=== PATIENT | male | born 1970 | race Caucasian/White ===

== ENCOUNTER → 2020-01-21 13:34 | Outpatient (CLI) | payer OTHER, SELFPAY ==
--- NOTE | ~2020-01-21 | XR_ITS ---
EXAMINATION: XR chest 2V DATE: 01/21/2020 13:46 INDICATION: Pneumonia, unspecified organism TECHNIQUE: Frontal and lateral views of the chest are obtained COMPARISON: None available FINDINGS: There are minimal airspace opacities of the lower lobes. There is no pleural effusion or pn eumothorax. The cardiomediastinal silhouette is normal. There is mild thoracic spondylosis. IMPRESSION: 1. Minimal airspace opacities of the lower lobes, likely pneumonia. Reviewed, dictated and finalized at location B.
== END ==
PROVIDERS: Visit Provider Nurse Practitioner Family
DX: J18.9 Pneumonia, unspecified organism (principal); R91.8 Other nonspecific abnormal finding of lung field
CPT/HCPCS: 71046

== ENCOUNTER 2020-02-13 09:06 | Outpatient (CLI) | payer OTHER, SELFPAY ==
--- NOTE | 2020-02-13 09:26 | ECG_ITS ---
Measurements Intervals [place] Rate: 92 P: 28 NV: 100 QRS: 0 QRSD: 89 T: 17 QT: 338 QTc: 419 Interpretive Statements SINUS RHYTHM WITH SHORT NV INTERVAL NONSPECIFIC ST & T-WAVE ABNORMALITY- INFERIOR LEADS BASELINE ARTIFACT- I, V1-V3 BORDERLINE ECG Electronically Signed On 02-13-2020 10:02:20 CDT by Giovanni Foreman D.O.
== END 2020-02-13 09:07 | disposition home or self-care (01) ==
PROVIDERS: PCP Family Medicine; Visit Provider Nurse Practitioner Family
DX: R07.9 Chest pain, unspecified (principal); R94.31 Abnormal electrocardiogram [ECG] [EKG]
CPT/HCPCS: 93005

== ENCOUNTER 2020-02-25 08:30 | Outpatient (CLI) | payer OTHER, SELFPAY ==
--- NOTE | ~2020-02-25 | XR_ITS ---
XR chest 2V 02/25/2020 08:45 Indication: Pneumonia Procedure: PA and lateral views of the chest Comparison: 01/21/2020 Findings: Cardiomegaly. Persistent bibasilar airspace disease. There is small bilateral pleural effus ions versus pleural thickening. No edema or pneumothorax. Impression: 1: Persistent bibasilar airspace disease which may represent atelectasis, scarring and/or pneumonia. 2: Small pleural effusions versus pleural thickening. Reviewed, dictated and finalized at location A. Impression: 1: Persistent bibasilar airspace disease which may represent atelectasis, scarr ing and/or pneumonia. 2: Small pleural effusions versus pleural thickening.
== END 2020-02-25 08:31 | disposition home or self-care (01) ==
LOC: ANHIMG 08:33
PROVIDERS: PCP Family Medicine; Visit Provider Nurse Practitioner Family
DX: J18.9 Pneumonia, unspecified organism (principal); R91.8 Other nonspecific abnormal finding of lung field
CPT/HCPCS: 71046

== ENCOUNTER 2020-03-04 07:28 | Outpatient (CLI) | payer OTHER, SELFPAY ==
--- NOTE | 2020-03-04 07:48 | ECHO_ITS ---
Patient Info Name: Rl Valdez Age: 49 years : 1970 Gender: Male Ht: 76 in Wt: 210 lbs BSA: 2.27 m2 HR: 85 bpm BP: 151 / 99 mmHg Heart Rhythm: Sinus Rhythm Technical Quality: Good Exam Date: 03/04/2020 7:57 AM Exam Location: [facility] Patient Status: Outpatient Admit Date: 03/04/2020 Staff Ordering Physician: Earl Daily NP Crown Ceramist: Yolie Montoya RDCS Attending Provider: Earl Daily NP Referring Physician: Killian STRICKLAND; Exam Type: CA echo doppler color flow Study Info Indications I51.7 - Cardiomegaly Complete two-dimensional, color flow and Doppler transthoracic echocardiogram is performed. Summary 1. Left ventricular chamber dimension is normal. 2. Left ventricular systolic function is normal, estimated at 55-60%. 3. The left ventricular diastolic function is grade I diastolic dysfunction. 4. E/e' 6 is not elevated. 5. Left atrial chamber dimension is mildly enlarged. 6. Right atrial chamber dimension is mildly enlarged. 7. There is mild mitral valve regurgitation. 8. There is mild tricuspid valve regurgitation. 9. No pulmonary hypertension, estimated pulmonary arterial systolic pressure is 26 mmHg. 10. There is trace pulmonic regurgitation. 11. The aortic root size at the sinus of Valsalva is mildly dilated at 4.1 cm. 12. There is trivial pericardial effusion. Left Ventricle E/e' 6 is not elevated. Left ventricular chamber dimension is normal. Left ventricular systolic function is normal, estimated at 55-60%. The left ventricular diastolic function is grade I diastolic dysfunction. Right Ventricle Right ventricular chamber dimension is normal. Right ventricular systolic function is normal. Left Atria Left atrial chamber dimension is mildly enlarged. Right Atria Right atrial chamber dimension is mildly enlarged. Aortic Valve The aortic valve is trileaflet. There is no aortic valve stenosis. There is no aortic valve regurgitation. Pulmonic Valve There is trace pulmonic regurgitation. Mitral Valve There is no mitral valve stenosis. There is mild mitral valve regurgitation. Tricuspid Valve There is mild tricuspid valve regurgitation. No pulmonary hypertension, estimated pulmonary arterial systolic pressure is 26 mmHg. Pericardium/Pleural There is trivial pericardial effusion. Inferior Vena Cava Normal inferior vena cava with >50% collapse upon inspiration consistent with normal right atrial pressure, 5 mmHg. Aorta The aortic root size at the sinus of Valsalva is mildly dilated at 4.1 cm. Left Ventricular Outflow Tract Name Value Normal LVOT 2D LVOT Diameter 2.4 cm LVOT Doppler LVOT Peak Gradient 4 mmHg LVOT Mean Gradient 1 mmHg LVOT VTI 23 cm LVOT VTI/AV VTI Ratio 0.9 LVOT Stroke Volume 103 ml LVOT CO 14.5 l/min LVOT CI 6.4 l/min/m2 Pulmonic Valve
== END 2020-03-04 07:29 | disposition home or self-care (01) ==
PROVIDERS: PCP Family Medicine; Visit Provider Nurse Practitioner Family
DX: I51.7 Cardiomegaly (principal); I34.0 Nonrheumatic mitral (valve) insufficiency; I36.1 Nonrheumatic tricuspid (valve) insufficiency
CPT/HCPCS: 93306

== ENCOUNTER 2020-03-20 08:43 | Outpatient (CLI) | payer OTHER, SELFPAY ==
--- NOTE | ~2020-03-20 | CT_ITS ---
EXAMINATION: CTA chest DATE: 03/20/2020 09:43 INDICATION: Thoracic aortic ectasia TECHNIQUE: Computed tomographic angiography (CTA) of the chest was performed with 100 mL Omnipque-350 intravenous contrast. Maximum intensity projection 3D-reconstructions of the aorta and other arterie s were constructed by the technologist on a separate workstation. The dose-length product (DLP) was 6 23.06 mGy-cm. Automated exposure control and iterative reconstruction technique were employed. COMPARISON: None. FINDINGS: There is fusiform dilation of the ascending aorta which measures 4.1 x 3.9 cm at the level of the main pulmonary artery. No dissection is identified. Dependent atelectasis is noted in the lowe r lobes. A few scattered pulmonary nodules are seen which measure 2 to 3 mm, most consistent with old granulomatous disease. There is no pleural effusion or pneumothorax. No pathologically enlarged thor acic lymph nodes are identified. The heart size is normal. A trace pericardial effusion is noted. The re is mild thoracic spondylosis. IMPRESSION: 1. Fusiform dilation of the ascending aorta without dissection. Reviewed, dictated and finalized at location A.
[2020-03-20 09:35] LABS: Estimated Glomerular Filt Rate > 60
== END 2020-03-20 08:44 | disposition home or self-care (01) ==
PROVIDERS: PCP Family Medicine; Visit Provider Internal Medicine Cardiovascular Disease
DX: I77.810 Thoracic aortic ectasia (principal)
CPT/HCPCS: 36415; 71275; Q9967

== ENCOUNTER 2020-03-25 12:19 | Outpatient (CLI) | payer OTHER, SELFPAY ==
--- NOTE | ~2020-03-25 | XR_ITS ---
EXAMINATION: XR chest 2V 03/25/2020 12:32 INDICATION: Pneumonia PROCEDURE: 2 view chest COMPARISON: 02/25/2020 FINDINGS: The lungs are clear. The cardiomediastinal silhouette is within normal limits. There are no pleural effusions. There is no pneumothorax suspected. IMPRESSION: 1: NO ACUTE CARDIOPULMONARY DISEASE. Reviewed, dictated and finalized at location A.
== END 2020-03-25 12:20 | disposition home or self-care (01) ==
PROVIDERS: PCP Family Medicine; Visit Provider Nurse Practitioner Family
DX: J18.9 Pneumonia, unspecified organism (principal)
CPT/HCPCS: 71046

== ENCOUNTER 2020-10-02 15:08 | Outpatient (CLI) | payer OTHER, SELFPAY ==
--- NOTE | 2020-10-02 15:41 | ECG_ITS ---
Measurements Intervals [place] Rate: 95 P: 57 AL: 150 QRS: -47 QRSD: 93 T: 34 QT: 345 QTc: 434 Interpretive Statements SINUS RHYTHM LEFT ANTERIOR FASCICULAR BLOCK BASELINE WANDER- III, V1-V3 ABNORMAL ECG Electronically Signed On 10-02-2020 15:54:07 ENVIRONMENTAL FIELD OFFICE MANAGER by Giovanni Foreman D.O.
== END 2020-10-02 15:09 | disposition home or self-care (01) ==
LOC: ANHCARD 15:10
PROVIDERS: PCP Family Medicine; Visit Provider Nurse Practitioner Family
DX: Z01.810 Encounter for preprocedural cardiovascular examination (principal); I44.4 Left anterior fascicular block
CPT/HCPCS: 93005

== ENCOUNTER 2020-11-05 08:24 | Outpatient (CLI) | payer OTHER, SELFPAY ==
--- NOTE | 2020-11-05 09:08 | ECHO_ITS ---
Patient Info Name: Rl Valdez Age: 49 years : 1970 Gender: Male Ht: 76 in Wt: 230 lbs BSA: 2.38 m2 HR: 77 bpm BP: 144 / 98 mmHg Technical Quality: Good Exam Date: 11/05/2020 9:30 AM Exam Location: [facility] Patient Status: Outpatient Admit Date: 11/05/2020 Staff Ordering Physician: Tamica Peter Bottle Booth Attendant: Van Vega RDCS, RT Attending Provider: Tamica Peter Referring Physician: Brittani MCRAE; Exam Type: CA echo doppler color flow Study Info Indications R94.31 - Abnormal electrocardiogram ECG EKG Complete two-dimensional, color flow and Doppler transthoracic echocardiogram is performed. Strain analysis performed. Summary 1. Complete two-dimensional, color flow and Doppler transthoracic echocardiogram is performed. 2. Left ventricular chamber dimension is normal. 3. Left ventricular systolic function is normal, estimated at 60-65%. 4. The left ventricular diastolic function is grade I diastolic dysfunction. 5. E/e' 4 is not elevated. 6. Global longitudinal strain is mildly abnormal at -16.2%. 7. There is trace mitral valve regurgitation. 8. There is mild tricuspid valve regurgitation. 9. No pulmonary hypertension, estimated pulmonary arterial systolic pressure is 28 mmHg. Left Ventricle E/e' 4 is not elevated. Global longitudinal strain is mildly abnormal at -16.2%. Left ventricular chamber dimension is normal. Left ventricular systolic function is normal, estimated at 60-65%. The left ventricular diastolic function is grade I diastolic dysfunction. Right Ventricle Right ventricular chamber dimension is normal. Right ventricular systolic function is normal. Left Atria Left atrial chamber dimension is normal. Right Atria Right atrial chamber dimension is normal. Aortic Valve The aortic valve is trileaflet. There is no aortic valve stenosis. There is no aortic valve regurgitation. Pulmonic Valve There is no pulmonic regurgitation. Mitral Valve There is no mitral valve stenosis. There is trace mitral valve regurgitation. Tricuspid Valve There is mild tricuspid valve regurgitation. No pulmonary hypertension, estimated pulmonary arterial systolic pressure is 28 mmHg. Pericardium/Pleural There is no pericardial effusion. Inferior Vena Cava Normal inferior vena cava with >50% collapse upon inspiration consistent with normal right atrial pressure, 5 mmHg. Aorta The aortic root size at the sinus of Valsalva is normal. Left Ventricular Outflow Tract Name Value Normal LVOT 2D LVOT Diameter 2.3 cm LVOT Doppler LVOT Peak Gradient 4 mmHg LVOT Mean Gradient 2 mmHg LVOT VTI 19 cm LVOT VTI/AV VTI Ratio 0.8 LVOT Stroke Volume 81 ml LVOT CO 6.3 l/min LVOT CI 2.6 l/min/m2 Mitral Valve Name Value Normal
== END 2020-11-05 08:25 | disposition home or self-care (01) ==
PROVIDERS: PCP Family Medicine; Visit Provider Nurse Practitioner Family
DX: R94.31 Abnormal electrocardiogram [ECG] [EKG] (principal)
CPT/HCPCS: 93306

== ENCOUNTER 2020-11-13 09:27 | Outpatient (CLI) | payer OTHER, SELFPAY ==
--- NOTE | 2020-11-13 09:33 | EST_ITS ---
Patient Info Name: Rl Valdez Age: 49 years : 1970 Gender: Male Exam Date: 11/13/2020 10:06 AM Exam Location: [facility] Patient Status: Outpatient Admit Date: 11/13/2020 Staff Ordering Physician: Tamica Peter Attending Provider: Tamica Peter Exercise Technologist: Elise Naidu RDCS Exercise Physician: Giovanni Foreman DO Exam Type: CA stress test treadmill Study Info Indications R94.31 - Abnormal electrocardiogram ECG EKG A treadmill exercise stress test was performed. Summary 1. 1. Negative Sathish exercise stress test for ischemic ST changes by ECG criteria. 2. 2. Good functional capacity, achieving 12 METs of workload. 3. 3. Appropriate HR response to exercise. 4. 4. Appropriate HR recovery at 1 minute post exercise. 5. 5. Normal baseline blood pressure with hypertensive response to exercise. 6. 6. No imaging with stress testing. 7. 7. Patient informed of the above results. Protocol: Sathish Stress ECG Details Stage: REST Duration (min): 6 min : 2 sec Speed (mph): 0.0 Grade (%): 0 HR (bpm): 78 SBP (mmHg): 125 DBP (mmHg): 87 METS: --- Stage: REST Duration (min): 10 min : 40 sec Speed (mph): 0.0 Grade (%): 0 HR (bpm): 81 SBP (mmHg): 125 DBP (mmHg): 87 METS: --- Stage: STAGE 1 Duration (min): 1 min : 0 sec Speed (mph): 1.7 Grade (%): 10 HR (bpm): 107 SBP (mmHg): 125 DBP (mmHg): 87 METS: --- Stage: STAGE 1 Duration (min): 2 min : 0 sec Speed (mph): 1.7 Grade (%): 10 HR (bpm): 106 SBP (mmHg): 125 DBP (mmHg): 87 METS: --- Stage: STAGE 1 Duration (min): 3 min : 0 sec Speed (mph): 1.7 Grade (%): 10 HR (bpm): 105 SBP (mmHg): 151 DBP (mmHg): 74 METS: --- Stage: STAGE 2 Duration (min): 1 min : 0 sec Speed (mph): 2.5 Grade (%): 12 HR (bpm): 113 SBP (mmHg): 151 DBP (mmHg): 74 METS: --- Stage: STAGE 2 Duration (min): 2 min : 0 sec Speed (mph): 2.5 Grade (%): 12 HR (bpm): 120 SBP (mmHg): 147 DBP (mmHg): 79 METS: --- Stage: STAGE 2 Duration (min): 3 min : 0 sec Speed (mph): 2.5 Grade (%): 12 HR (bpm): 122 SBP (mmHg): 147 DBP (mmHg): 79 METS: --- Stage: STAGE 3 Duration (min): 1 min : 0 sec Speed (mph): 3.4 Grade (%): 14 HR (bpm): 131 SBP (mmHg): 149 DBP (mmHg): 79 METS: --- Stage: STAGE 3 Duration (min): 2 min : 0 sec Speed (mph): 3.4 Grade (%): 14 HR (bpm): 139 SBP (mmHg): 149 DBP (mmHg): 79 METS: --- Stage: STAGE 3 Duration (min): 3 min : 0 sec Speed (mph): 3.4 Grade (%): 14 HR (bpm): 146 SBP (mmHg): 168 DBP (mmHg): 104 METS: --- Stage: STAGE 4 Duration (min): 1 min : 0 sec Speed (mph): 4.2 Grade (%): 16 HR (bpm): 158 SBP (mmHg): 198 DBP (mmHg): 104 METS: --- Stage: STAGE 4 Durati
== END 2020-11-13 09:28 | disposition home or self-care (01) ==
PROVIDERS: PCP Family Medicine; Visit Provider Nurse Practitioner Family
DX: R94.31 Abnormal electrocardiogram [ECG] [EKG] (principal)
CPT/HCPCS: 93017